=== PATIENT | female | born 1950 | race Caucasian/White ===

== ENCOUNTER 2016-05-28 11:40 | Emergency (ER) | payer OTHER, MEDICAID ==
[2016-02-23 12:40] VITALS: BMI 25.5
[~2016-05-28 11:40] MED LIST: GLUCOPHAGE500 MG PO; LANTUS INSULIN10 ML SC; LEVAQUIN250 MG PO; LISINOPRIL10 MG PO; [UNRECOGNIZED DRUG - OTHER]
[2016-05-28 14:52] LABS: BASOPHILS 0.2 % (0.0-2.0); EOSINOPHILS 1.5 % (0-7); HEMATOCRIT 42.5 % (36.0-48.0); HEMOGLOBIN 14.1 g/dL (12-16); IMMATURE GRANULOCYTES 0.2 % (0-5); LYMPHOCYTES 35.6 % (15-50); MCHC 33.2 g/dL (31.0-37.0); MCV 84.5 fL (80.0-100.0); MEAN PLATELET VOLUME 9.9 fL (7.4-10.4); MONOCYTES 4.3 % (2-11); NEUTROPHILS 58.2 % (40-80); RBC 5.03 10x6/uL (4.00-5.40); RDW 14.5 % (11.5-14.5); WBC 8.6 10x3/uL (4.8-10.8)
[2016-05-28 15:18] LABS: ALBUMIN 3.5 g/dL (3.4-5.0); ALKALINE PHOSPHATASE 76 U/L (46-116); ALT (SGPT) 16 U/L (10-68); AMYLASE - SERUM 38 U/L (25-115); BILIRUBIN - TOTAL 0.44 mg/dL (0.2-1.3); CALC OSMOLALITY 274 mosm/kg (275-300); CALCIUM 9.4 mg/dL (8.5-10.1); CARBON DIOXIDE 28.4 mmol/L (21.0-32.0); CHLORIDE - SERUM 102 mmol/L (98-107); CREATININE - SERUM 0.8 mg/dL (0.6-1.3); GLUCOSE 139 mg/dL (74-106); LIPASE 225 U/L (73-393); POTASSIUM - SERUM 3.9 mmol/L (3.5-5.1); PROTEIN - SERUM 7.8 g/dL (6.4-8.2); SODIUM 137 mmol/L (136-145); UREA NITROGEN 11 mg/dL (7-18); eGFR NON AFRICAN AMERICAN 76 mL/min (90-120)
[2016-05-28 15:20] LABS: PLATELET COUNT 267 10x3/uL (130-400)
== END 2016-05-28 17:28 | disposition left against medical advice (07) ==
LOC: D.ER 11:40
PROVIDERS: Emergency Medicine
DX: R10.84 Generalized abdominal pain (principal)

== ENCOUNTER → 2016-08-21 09:13 | Outpatient (CLI) | payer MEDICARE, MEDICAID ==
[2016-02-23 12:40] VITALS: BMI 25.5
== END | disposition home or self-care (01) ==
LOC: D.LAB 09:13
DX: Z85.038 Personal history of other malignant neoplasm of large intestine (principal)